=== PATIENT | male | born 1980 | race Caucasian/White ===

== ENCOUNTER 2017-01-01 19:22 | Emergency (ER) | payer OTHER ==
[~2017-01-01] VITALS: Ht 180.3 cm; Wt 84.5 kg
[2017-01-01] MEDS ORDERED: FAMOTIDINE 20 MG TABLET ONE (20:27)
[2017-01-01] MEDS ORDERED: FAMOTIDINE 20 MG TABLET PO ONE (20:30)
[2017-01-01] MEDS ORDERED: ESCI10TA10 PO (20:50)
[2017-01-01 21:39] VITALS: BP 117/80
== END 2017-01-01 21:41 | disposition home or self-care (01) ==
LOC: ED 21:35
DX: L25.9 Unspecified contact dermatitis, unspecified cause (principal); L73.9 Follicular disorder, unspecified
CPT/HCPCS: 99284; J7512; Q0177

== ENCOUNTER → 2020-03-20 | Outpatient (CLI) | payer OTHER ==
[~2020-03-20] MED LIST: ESCI10TA10 PO; GADOTERATE 10 MMOL/20 ML SYR ONE
== END | disposition home or self-care (01) ==
LOC: CFH 07:19
PROVIDERS: ATTEND Psychiatry & Neurology Neurology
DX: R93.0 Abnormal findings on diagnostic imaging of skull and head, not elsewhere classified (principal)
CPT/HCPCS: 70553; A9575